=== PATIENT | female | born 1990 ===

== ENCOUNTER → 2022-07-25 | Outpatient (CLI) | payer BC | END | disposition home or self-care (01) | LOC: LAB 19:01 → LAB SHORT 19:01 | DX: R30.0 Dysuria (principal) | CPT/HCPCS: 87086 ==

== ENCOUNTER → 2023-05-16 | Outpatient (CLI) | payer BC | LOC: LAB EV 15:10 → LAB SHORT 15:10 | DX: N39.0 Urinary tract infection, site not specified (principal) | CPT/HCPCS: 87077; 87086; 87186 ==